=== PATIENT | male | born 1985 | race Caucasian/White ===

== ENCOUNTER 2017-03-22 14:29 | Emergency (ER) | payer MEDICAID ==
--- NOTE | 2017-03-22 14:43 | ED Physician Documentation ---
PD HPI Fall - Stated complaint Stated Complaint: FALL, FACE LAC, HEAD INJ - History obtained from History obtained from: Patient, Family - History of Present Illness Mechanism of injury: Other (fall off ladder into bushes) Fall distance: 10 to 15ft Where injury occurred: Home Timing - onset: How many hours ago (1) Injury(ies) location: Head, Face. No: Neck, Chest, Abdomen, Back, Right Upper Extremity, Left Uppper Extremity, Right Lower Extremity, Left Lower Extremity, Right Hand, Left Hand, Right Foot, Left Foot Pain level max: 3 Pain level now: 3 Quality of pain: Pain, Aching, Dull Associated symptoms: AMS (doesn't recall the event fully). No: LOC, Neck pain, Weakness, Paresthesias, Dyspnea, Nausea / vomiting, Hematemesis Symptoms improve with: Rest Worsens with: Movement, Palpation Contributing factors: No: Anticoagulated, Intoxicated Recently seen: Not recently seen Review of Systems Ten Systems: 10 systems reviewed and negative Constitutional: denies: Fever, Chills Ears: denies: Ear pain Nose: denies: Rhinorrhea / runny nose, Congestion Throat: denies: Sore throat Cardiac: denies: Chest pain / pressure Respiratory: denies: Cough GI: denies: Abdominal Pain, Nausea, Vomiting, Diarrhea Skin: denies: Rash Musculoskeletal: denies: Neck pain, Back pain Neurologic: denies: Focal weakness, Numbness, Syncope, Seizure PD PAST MEDICAL HISTORY - Past Medical History Past Medical History: No - Past Surgical History Past Surgical History: No - Allergies Allergies/Adverse Reactions: Allergies Allergy/AdvReac Type Severity Reaction Status Date / Time tracywi Allergy Itching Verified 03/22/17 14:39 - Living Situation Living Situation: reports: With family Living Arrangement: reports: At home - Family History Family history: reports: Non contributory - Immunizations Immunizations are current?: No Immunizations: TDAP >10years/unknown PD ED PE NORMAL - Vitals Vital signs reviewed: Yes - General General: Alert and oriented X 3, No acute distress, Well developed/nourished - HEENT HEENT: PERRL, EOMI, Ears normal, Moist mucous membranes, Other (abrasion to the bridge of the nose, laceration under the R nare. L parietal abrasion and scalp hematoma. ) - Neck Neck: Supple, no meningeal sign, No bony TTP - Cardiac Cardiac: RRR, Strong equal pulses - Respiratory Respiratory: No respiratory distress, Clear bilaterally - Abdomen Abdomen: Soft, Non tender, Non distended - Back Back: No spinal TTP - Derm Derm: Warm and dry - Extremities Extremities: No deformity - Neuro Neuro: Alert and oriented X 3, rehab technician 2-12 intact, No motor deficit, No sensory deficit, Normal speech - Psych Psych: Normal mood, Normal affect Results - Vitals Vitals: Vital Signs - 24 hr 03/22/17 03/22/17 03/22/17 14:40 14:45 14:50 Temperature Heart Rate 86 85 80 Respiratory 18 16 17 Rate Blood Pressure 124/78 122/73 123/70 O2 Saturation 100 100 99 03/22/17 03/22/17 03/22/17 15:00 15:15 15:30 Temperature Heart Rate 79 86 85 Respiratory 16 16 18 Rate Blood Pressure 124/82 H 119/80 123/80 O2 Saturation 98 100 99 03/22/17 03/22/17 16:42 17:35 Temperature 37.4 C Heart Rate 84 Respiratory 18 Rate Blood Pressure 113/74 O2 Saturation 98 Oxygen O2 Source Room air - Labs Labs: Laboratory Tests 03/22/17 16:36 POC Whole Bld Glucose 130 H - Rads (name of study) head CT Radiology: Prelim report reviewed, EMP read contemporaneously, See rad report ( No acute or focal intracranial abnormality seen. Large left lateral scalp hematoma. ) facial bones CT Radiology: Prelim report reviewed, EMP read contemporaneously, See rad report ( Acute nasal bone fractures involving the anterior bridge extending into the left nasal alar region. There is mild depression of the anterior fracture fragment. Adjacent soft tissue swelling. There appears to be inferior forehead soft tissue swelling. Upper lip soft tissue swelling with soft tissue gas consistent with laceration. Otherwise, as above. ) Procedures - Laceration (location) R upper lip Length in cm: 2.5 Wound type: Linear, Flap, Into subcut fat, Clean Neurovascular status: Sensory intact, Motor intact, Vascular intact Anesthesia: Lidocaine 1% Wound Preparation: Irrigated copiously NS Skin layer closure: Nylon, Size #-0 - enter number (5), Sutures - enter # (3) Other: Patient tolerated well, No complications, Neurovascular intact, Tetanus booster given (tdap) Complexity: Simple PD MEDICAL DECISION MAKING - ED course Complexity details: reviewed results, re-evaluated patient, considered differential, d/w patient, d/w family ED course: Patient is a 31-year-old gentleman who fell off a ladder onto the ground in a [place] today. Has a large left parietal scalp hematoma, but no underlying fractures or intracranial hemorrhage. Has an acute nasal bone fracture with abrasions, but not an open fracture. Also has a right upper lip laceration that was repaired. Tolerated well. No neck or back tenderness. Tdap given. Warnings of infection and instructions on wound care given at bedside. Also counseled on how to minimize scarring. Patient and family counseled regarding signs and symptoms for which I believe and urgent re-evaluation would be necessary. Patient with good understanding of and agreement to plan and is comfortable going home at this time This document was made in part using voice recognition software. While efforts are made to proofread this document, sound alike and grammatical errors may occur. Abdomen was soft, nontender nondistended on serial exam. Ambulating with a normal steady gait. Departure - Departure Disposition: 01 Home, Self Care Clinical Impression: Nasal bone fracture Qualifiers: Encounter type: initial encounter Fracture type: closed Qualified Code(s): S02.2XXA - Fracture of nasal bones, initial encounter for closed fracture Facial laceration Qualifiers: Encounter type: initial encounter Qualified Code(s): S01.81XA - Laceration without foreign body of other part of head, initial encounter Head injury Qualifiers: Encounter type: initial encounter Qualified Code(s): S09.90XA - Unspecified injury of head, initial encounter Scalp hematoma Qualifiers: Encounter type: initial encounter Qualified Code(s): S00.03XA - Contusion of scalp, initial encounter Condition: Good Instructions: ED Head Injury Closed, ED Hematoma Follow-Up: your,doctor in 1 week for suture removal [Other] Comments: Return if you worsen including redness, swelling or drainage from the wound. The nose should heal without any difficulty. Otherwise your CAT scans are normal. The stitches should be removed in approximately 1 week with your doctor or return here. Discharge Date/Time: 03/22/17 17:36
[2017-03-22] MEDS ORDERED: TETANUS/DIPHTHERIA/PERTUSSIS 0.5 ML SYRINGE IM ONE ×3 (14:44→15:46)
[2017-03-22] MEDS ORDERED: LIDOCAINE 2%-EPI 1:100000 20 ML MDV ONE (16:31)
[2017-03-22] MEDS ORDERED: BACITRACIN OINT TOP ONE (16:43)
--- NOTE | 2017-03-22 16:47 | CT Preliminary Report ---
Exam: CT HEAD W/O IMPRESSION: 1.No acute or focal intracranial abnormality seen. 2. Large left lateral scalp hematoma. [facility] SITE ID: [id number]
--- NOTE | 2017-03-22 16:49 | CT Report ---
EXAM: CT HEAD EXAM DATE: 03/22/2017 04:08 PM. CLINICAL HISTORY: Head injury, left parietal, fall off ladder. COMPARISON: None. TECHNIQUE: Multiaxial CT images were obtained from the foramen magnum to the vertex. IV contrast: Non e. Reformats: Coronal. In accordance with CT protocol optimization, one or more of the following dose reduction techniques w ere utilized for this exam: automated exposure control, adjustment of mA and/or KV based on patient s ize, or use of iterative reconstructive technique. FINDINGS: Parenchyma: No intraparenchymal hemorrhage. No evidence of mass, midline shift, or CT findings of inf arction. Ellis-white differentiation is distinct. Extraaxial Spaces: Normal for age. No subdural or epidural collections identified. Ventricles: Normal in size and position. Sinuses and Orbits: Imaged paranasal sinuses, orbits, and mastoids show no significant abnormality. Bones: No evidence of fracture or calvarial defect. Other: Large left lateral scalp hematoma, measures 7.3 x 1.3 x 7 cm. IMPRESSION: 1.No acute or focal intracranial abnormality seen. 2. Large left lateral scalp hematoma. [facility] Referring Provider Line: [phone] SITE ID: [id number]
--- NOTE | 2017-03-22 17:13 | CT Report ---
EXAM: CT MAXILLOFACIAL WITHOUT CONTRAST EXAM DATE: 03/22/2017 04:08 PM. CLINICAL HISTORY: Fall off ladder, nasal and mouth injuries. COMPARISONS: None. TECHNIQUE: Thin-section axial images were acquired of the face without contrast. Post-processing: Cor onal and sagittal reformats. Other: None. In accordance with CT protocol optimization, one or more of the following dose reduction techniques w ere utilized for this exam: automated exposure control, adjustment of mA and/or KV based on patient s ize, or use of iterative reconstructive technique. FINDINGS: Bones: Acute nasal bone fractures involving the anterior bridge extending into the left ruddy al alar region. There is mild depression of the anterior fracture fragment. Adjacent soft tissue swel ling. There appears to be inferior forehead soft tissue swelling. Upper lip soft tissue swelling with soft tissue gas consistent with laceration. Minimal bilateral maxillary sinus mucosal thickening. Minimal right sphenoid sinus mucosal thickening . Bilateral temporomandibular joints appear in normal alignment. Small collection of gas seen at the left aspect of the hypopharynx, uncertain etiology, could represe nt a diverticula here, measures 1 cm. Bilateral orbits appear within normal limits. IMPRESSION: 1. Acute nasal bone fractures involving the anterior bridge extending into the left nasal alar region . There is mild depression of the anterior fracture fragment. Adjacent soft tissue swelling. 2. There appears to be inferior forehead soft tissue swelling. Upper lip soft tissue swelling with so ft tissue gas consistent with laceration. Otherwise, as above. [facility] Referring Provider Line: [phone] SITE ID: [id number]
[2017-03-22 17:36] VITALS: BP 113/74
== END 2017-03-22 17:36 | disposition home or self-care (01) ==
LOC: ED 14:29
DX: S02.2XXA Fracture of nasal bones, initial encounter for closed fracture (principal); S01.511A Laceration without foreign body of lip, initial encounter; S09.90XA Unspecified injury of head, initial encounter; S00.83XA Contusion of other part of head, initial encounter; W11.XXXA Fall on and from ladder, initial encounter; Y92.007 Garden or yard of unspecified non-institutional (private) residence as the place of occurrence of the external cause; Z23 Encounter for immunization
CPT/HCPCS: 12011; 70450; 70486; 90471; 99283; 99284

== ENCOUNTER 2020-08-04 18:50 | Emergency (ER) | payer MEDICAID ==
--- NOTE | 2020-08-04 19:18 | ED Physician Documentation ---
History of Present Illness - Stated complaint Stated Complaint: BLOATED - Chief complaint Chief Complaint: Abd Pain - History obtained from History obtained from: Patient - Additonal information Additional information: 34-year-old man, previously healthy with no past surgical history in the abdomen presents with bloating and sensation of constipation over the past week and a half. Patient states that a month ago he had a viral gastroenteritis and since that time he has had mild upset stomach that has progressively worsened. Pain is diffuse, mild, cramping, associated with bloating sensation. It has been worsening recently since he has had a diet predominantly of beans, cabbage, and corn beef.Denies fevers, nausea vomiting diarrhea urinary symptoms or rectal bleeding. Passing normal gas. His stools are stringy and soft and he has a sensation of incomplete bowel emptying. Of note, the patient also has a midline upper abdominal mass that pops up whenever he strains himself or leans back on an exercise ball. He does notice it for the first time today. It is not painful and goes away when he relaxes the stomach. Review of Systems Ten Systems: 10 systems reviewed and negative Constitutional: denies: Fever GI: reports: Abdominal Pain, Constipation. denies: Nausea, Vomiting, Diarrhea, Bloody / black stool : denies: Dysuria PD PAST MEDICAL HISTORY - Past Medical History Past Medical History: Yes Cardiovascular: None Respiratory: None Neuro: None Endocrine/Autoimmune: None GI: None : None HEENT: Other Psych: None Musculoskeletal: None Derm: None Other Past Medical History: seasonal allergies - Past Surgical History Past Surgical History: No - Present Medications Home Medications: Ambulatory Orders Medication Instructions Recorded Confirmed Loratadine [Claritin] 10 mg PO DAILY 08/04/20 08/04/20 - Allergies Allergies/Adverse Reactions: Allergies Allergy/AdvReac Type Severity Reaction Status Date / Time kiwi Allergy Itching Verified 08/04/20 18:52 - Social History Does the pt smoke?: No Smoking Status: Never smoker Does the pt drink ETOH?: Yes Does the pt have substance abuse?: No - Immunizations Immunizations are current?: Yes Immunizations: TDAP >10years/unknown PD ED PE NORMAL - Vitals Vital signs reviewed: Yes - General General: Alert and oriented X 3, No acute distress, Well developed/nourished - HEENT HEENT: Atraumatic, PERRL, EOMI - Neck Neck: Supple, no meningeal sign - Cardiac Cardiac: RRR - Respiratory Respiratory: No respiratory distress, Clear bilaterally - Abdomen Abdomen: Soft, Non tender, Non distended, Other (discomfort to palpation diffusely. midline upper abdominal wall defect with anterior abdominal wall hernia palpable with strain. easily reducible. ) - Male Male : Deferred - Rectal Rectal: Pt declined - Derm Derm: Normal color - Extremities Extremities: No deformity - Neuro Neuro: Alert and oriented X 3 - Psych Psych: Normal mood, Normal affect Results - Vitals Vitals: Vital Signs - 24 hr 08/04/20 18:52 Temperature 36.4 C L Heart Rate 81 Respiratory 18 Rate Blood Pressure 131/80 H O2 Saturation 98 Oxygen O2 Source Room air PD MEDICAL DECISION MAKING - ED course Complexity details: d/w patient ED course: 34yM with pmh recent viral gastroenteritis p/w bloating and sensation of constipation. KUB obtained to r/o obstruction or microperforation with normal bowel pattern. Patient declined bloodwork and MAGUI. advised changing diet to milder high fiber foods and educated on OTC treatments for bloating/constipation. He will f/u in surgery clinic for hernia evaluation. strict return precautions given. Departure - Departure Clinical Impression: Hernia of anterior abdominal wall, Bloating symptom, Constipation Condition: Good Instructions: ED Gas Bloating, Hernia Follow-Up: Igor Marrero MD [Provider Admit Priv/Credential] - Comments: You were seen in the emergency department for bloating, constipation, and a anterior abdominal wall hernia. None of these conditions appear to be dangerous at this time. Follow-up in surgery clinic for further evaluation of the hernia. Return to the emergency department if you have any new or worsening symptoms or other concerns. Try taking gas-X or simethicone uklt-wbr-rvdodaf at your local pharmacy for bloating. If you continue to feel constipated, you can take cdsf-lzi-kblduoa senna/docusate to soften your stool and MiraLAX as a laxative.
--- NOTE | 2020-08-04 20:00 | XRAY Report ---
PROCEDURE: Abdomen 2 View X-Ray INDICATIONS: lying down and sitting up TECHNIQUE: 2 views of the abdomen were acquired. COMPARISON: None. FINDINGS: Surgical changes and devices: None. Bowel: No pneumoperitoneum. The bowel gas pattern is normal. Soft tissues: No masses; visualized solid organ contours appear normal in size. No suspicious abdom inal calcifications. Bones: No suspicious bony abnormalities. IMPRESSION: Normal bowel gas pattern. Reviewed by: Kiara Meléndez MD on 08/04/2020 7:59 PM PDT Approved by: Kiara Meléndez MD on 08/04/2020 7:59 PM PDT Station ID: [id number]
[2020-08-04] MEDS ORDERED: ACETAMINOPHEN 325 MG TABLET PO STA (20:09)
[2020-08-04 20:12] VITALS: BP 114/75
== END 2020-08-04 20:29 | disposition home or self-care (01) ==
LOC: ED 18:50
DX: K43.9 Ventral hernia without obstruction or gangrene (principal); K59.00 Constipation, unspecified
CPT/HCPCS: 74019; 99283; 99284; A9270

== ENCOUNTER 2021-01-16 21:44 | Emergency (ER) | payer MEDICAID ==
--- NOTE | 2021-01-16 22:32 | ED Physician Documentation ---
PD HPI MALE - Stated complaint Stated Complaint: MALE - Chief complaint Chief Complaint: Abd Pain - History obtained from History obtained from: Patient - History of Present Illness Timing - onset: How many days ago (3-4) Timing - duration: Days Timing - details: Gradual onset Pain level now: 7 Associated symptoms: Scrotal swelling. No: Dysuria PD HPI MALE CONTRIB FACTORS: Sexually active (single partner ()) Similar symptoms before: Has not had sx before Recently seen: Not recently seen - Additional information Additional information: c/o gradual onset left testicular swelling and pain .denies h/o similar symptoms. denies urinary frequency, discharge, dysuria. denies injury Review of Systems Constitutional: denies: Fever GI: denies: Abdominal Pain, Nausea, Vomiting : reports: Testicular pain. denies: Dysuria, Frequency, Hematuria, Discharge Skin: denies: Rash PD PAST MEDICAL HISTORY - Past Medical History Past Medical History: Yes Cardiovascular: None Respiratory: None Neuro: None Endocrine/Autoimmune: None GI: None : None HEENT: Other Psych: None Musculoskeletal: None Derm: None - Past Surgical History Past Surgical History: No - Present Medications Home Medications: Ambulatory Orders Medication Instructions Recorded Confirmed Loratadine [Claritin] 10 mg PO DAILY 08/04/20 08/04/20 Amoxicillin 500 mg PO 01/16/21 levoFLOXacin [Levofloxacin] 500 mg PO DAILY #9 tablet 01/17/21 - Allergies Allergies/Adverse Reactions: Allergies Allergy/AdvReac Type Severity Reaction Status Date / Time kiwi Allergy Itching Verified 01/16/21 21:53 - Social History Does the pt smoke?: No Smoking Status: Never smoker Does the pt drink ETOH?: Yes Does the pt have substance abuse?: No - Immunizations Immunizations are current?: Yes Immunizations: TDAP >10years/unknown PD ED PE NORMAL - Vitals Vital signs reviewed: Yes - General General: Alert and oriented X 3, No acute distress, Well developed/nourished PD ED PE EXPANDED - Male Male : Normal lie/cremastaric, Tenderness (left hemiscrotal swelling and tenderness without erythema). No: Skin lesions, Discharge Results - Vitals Vitals: Vital Signs - 24 hr 01/16/21 01/16/21 21:46 23:13 Temperature 36.4 C L Heart Rate 90 79 Respiratory 14 14 Rate Blood Pressure 120/69 128/79 O2 Saturation 99 98 Oxygen O2 Source Room air - Labs Labs: Laboratory Tests 01/16/21 22:05 Chlam trachomat DNA PCR NEGATIVE N.gonorrhoeae DNA (PCR) NEGATIVE T. vaginalis (PCR) TNP - Rads (name of study) testicular US Radiology: Prelim report reviewed, See rad report PD MEDICAL DECISION MAKING - ED course Complexity details: reviewed results, re-evaluated patient, considered differential, d/w patient ED course: left hemiscrotal swelling and tenderness, symptoms began 3-4 days ago. US shows increased flow to left testicle, findings c/w epididymoorchitis. Will treat with levaquin 500mg PO x 10 days, advised to return if worse, f/u with PMD in 3-5 days. Departure - Departure Disposition: 01 Home, Self Care Clinical Impression: Epididymo-orchitis Condition: Good Instructions: ED Epididymitis, ED Orchitis Prescriptions: levoFLOXacin [Levofloxacin] 500 mg PO DAILY #9 tablet Comments: Follow up with your primary care provider in 3-5 days. Forms: Activity restrictions Discharge Date/Time: 01/17/21 00:52
[2021-01-16 23:13] VITALS: BP 128/79
[2021-01-17] MEDS ORDERED: levoFLOXacin 250 MG TABLET PO STA (00:26)
[2021-01-17] MEDS ORDERED: IBUPROFEN 600 MG TABLET PO STA (00:26)
[2021-01-17 00:50] LABS: CHLAMYDIA TRACHOMATIS DNA NEGATIVE (NEGATIVE); NEISSERIA GONORRHOEAE DNA NEGATIVE (NEGATIVE)
--- NOTE | 2021-01-17 09:30 | Ultrasound Report ---
PROCEDURE: Testicle w/Doppler INDICATIONS: left testicular pain and swelling TECHNIQUE: Real-time scanning was performed of the scrotum and testicles, with image documentation. Color and p ulse Doppler interrogation was performed of both testicles. COMPARISON: None. FINDINGS: Right: Testicle is normal in size at 4.5 x 2.4 x 3.2 cm, and homogenous in echotexture. Epididymis is normal in overall size and morphology. No hydrocele or varicoceles. Overlying scrotal skin is no rmal in thickness. Left: Testicle is normal in size at 4.8 x 3.0 x 3.3 cm, and mildly heterogeneous in echotexture. Ep ididymis is normal in overall size and heterogeneous. There is increased vascularity of both the lef t testicle and left epididymis. Incidental left epididymal appendix. Hyperemia also seen in the left traumatic or. No hydrocele or varicoceles. Overlying scrotal skin is normal in thickness. Doppler: Color and pulse Doppler demonstrate normal and symmetric arterial flow in both testicles. IMPRESSION: Left epididymoorchitis. Note: No significant discrepancy in the preliminary report. Reviewed by: Pepito Sanabria on 01/17/2021 8:28 AM DEB Approved by: Pepito Sanabria on 01/17/2021 8:28 AM DEB Station ID: [id number]
== END 2021-01-17 00:52 | disposition home or self-care (01) ==
LOC: ED 21:44
DX: N45.3 Epididymo-orchitis (principal)
CPT/HCPCS: 76870; 87491; 87591; 93975; 99283; 99284; A9270; 81001; 81003; 87086; 87661

== ENCOUNTER 2022-07-03 17:04 | Emergency (ER) | payer MEDICAID ==
[2022-07-03 17:10] VITALS: BP 136/80
--- OUTSIDE RECORDS SUMMARY | 2022-07-03 17:31 | EXTERNAL MEDICAL SUMMARY RPT | Continuity of Care Document ---
:1985 Author Organization [facility] Address [address] [place] [address] Phone Care Team Providers Name Role Phone Unavailable Unavailable Unavailable [facility], Christi Unavailable Unavailable Edie Ramsey, Trever Unavailable Unavailable Elena Patient Registrar, Herminia Unavailable Unavai lable Allergies No information. Encounters No information. Functional Status No information. Immunizations No information. Medications date description facility 2022-05-03 00:00 amoxicillin [facility] 2022-05-04 00:00 amoxicillin [facility] 2022-06-07 00:00 amoxicillin [facility] Marty lopez 2022-06-21 00:00 amoxicillin [facility] 2022-06-22 00:00 amoxicillin [facility] 2022-05-03 00:00 chlorhexidine gluconate [facility] 2022-05-04 00:00 chlorhexidine gluconate [facility] 2022-06-07 00:00 chlorhexidine gluconate [facility] 2022-06-21 00:00 chlorhexidine gluconate [facility] 2022-06-22 00:00 chlorhexidine gluconate [facility] Marty lopez 2022-05-03 00:00 prednisone [facility] Marty lopez 2022-05-03 00:00 prednisone [facility] Marty olpez 2022-05-03 00:00 prednisone [facility] lopez 2022-05-03 00:00 hydrocodone-acetaminophen [facility] 2022-05-04 00:00 hydrocodone-acetaminophen [facility] C [facility] 2022-06-07 00:00 hydrocodone-acetaminophen [facility] 2022-06-21 00:00 hydrocodone-acetaminophen [facility] 2022-06-22 00:00 hydrocodone-acetaminophen [facility] 2022-05-03 00:00 amoxicillin [facility] C [facility] 2022-05-04 00:00 amoxicillin [facility] 2022-06-07 00:00 amoxicillin [facility] C [facility] 2022-06-21 00:00 amoxicillin [facility] C [facility] 2022-06-22 00:00 amoxicillin [facility] C [facility] 2022-05-03 00:00 ibuprofen [facility] 2022-05-04 00:00 ibuprofen [facility] 2022-06-07 00:00 ibuprofen [facility] 2022-06-21 00:00 ibuprofen [facility] 2022-06-22 00:00 ibuprofen [facility] 2022-05-03 00:00 loratadine [facility] 2022-05-04 00:00 loratadine [facility] 2022-06-07 00:00 loratadine [facility] C [facility] 2022-06-21 00:00 loratadine [facility] C j[facility] 2022-06-22 00:00 loratadine [facility] C [facility] 2022-05-03 00:00 prednisone [facility] C [facility] 2022-05-03 00:00 prednisone [facility] C j[facility] 2022-05-03 00:00 prednisone [facility] C [facility] 2022-05-03 00:00 ibuprofen [facility] C [facility] 2022-05-04 00:00 ibuprofen [facility] C john 2022-06-07 00:00 ibuprofen [facility] C [facility] 2022-06-21 00:00 ibuprofen [facility] C [facility] 2022-06-22 00:00 ibuprofen [facility] C [facility] 2022-05-03 00:00 loratadine [facility] 2022-05-04 00:00 loratadine [facility] Marty lopez 2022-06-07 00:00 loratadine [facility] C [facility] 2022-06-21 00:00 loratadine [facility] C [facility] 2022-06-22 00:00 loratadine [facility] john 2022-05-03 00:00 prednisone [facility] john 2022-05-03 00:00 prednisone [facility] Marty landjohn 2022-05-03 00:00 prednisone [facility] 2022-05-03 00:00 chlorhexidine gluconate [facility] 2022-05-04 00:00 chlorhexidine gluconate [facility] C [facility] 2022-06-07 00:00 chlorhexidine gluconate [facility] Marty lopez 2022-06-21 00:00 chlorhexidine gluconate [facility] Marty lopez 2022-06-22 00:00 chlorhexidine gluconate [facility] Marty lopez 2022-05-03 00:00 benzonatate [facility] 2022-05-03 00:00 benzonatate [facility] C [facility] 2022-05-03 00:00 benzonatate [facility] C j[facility] 2022-05-03 00:00 amoxicillin [facility] C j[facility] 2022-05-04 00:00 amoxicillin [facility] C [facility] 2022-06-07 00:00 amoxicillin [facility] C j[facility] 2022-06-21 00:00 amoxicillin [facility] C j[facility] 2022-06-22 00:00 amoxicillin [facility] C [facility] 2022-05-03 00:00 prednisone [facility] C [facility] 2022-05-03 00:00 prednisone [facility] C j[facility] 2022-05-03 00:00 prednisone [facility] C [facility] 2022-05-03 00:00 loratadine [facility] 2022-05-04 00:00 loratadine [facility] C [facility] 2022-06-07 00:00 loratadine [facility] C [facility] 2022-06-21 00:00 loratadine [facility] C [facility] 2022-06-22 00:00 loratadine [facility] C [facility] 2022-05-03 00:00 benzonatate [facility] C [facility] 2022-05-03 00:00 benzonatate [facility] C [facility] 2022-05-03 00:00 benzonatate [facility] C [facility] 2022-05-03 00:00 albuterol sulfate [facility] 2022-05-03 00:00 albuterol sulfate [facility] C [facility] 2022-05-03 00:00 albuterol sulfate [facility] C [facility] 2022-05-03 00:00 albuterol sulfate [facility] C [facility] 2022-05-03 00:00 albuterol sulfate [facility] 2022-05-03 00:00 albuterol sulfate [facility] C [facility] 2022-05-03 00:00 loratadine [facility] 2022-05-04 00:00 loratadine [facility] 2022-06-07 00:00 loratadine [facility] 2022-06-21 00:00 loratadine [facility] C [facility] 2022-06-22 00:00 loratadine [facility] C [facility] 2022-05-03 00:00 amoxicillin [facility] 2022-05-04 00:00 amoxicillin [facility] C [facility] 2022-06-07 00:00 amoxicillin [facility] C [facility] 2022-06-21 00:00 amoxicillin [facility] C [facility] 2022-06-22 00:00 amoxicillin [facility] C [facility] 2022-05-03 00:00 benzonatate [facility] C [facility] 2022-05-03 00:00 benzonatate [facility] C [facility] 2022-05-03 00:00 benzonatate [facility] C [facility] 2022-05-03 00:00 benzonatate [facility] C j[facility] 2022-05-03 00:00 benzonatate [facility] C [facility] 2022-05-03 00:00 benzonatate [facility] C [facility] 2022-05-03 00:00 ibuprofen [facility] C [facility] 2022-05-04 00:00 ibuprofen [facility] C [facility] 2022-06-07 00:00 ibuprofen [facility] C [facility] 2022-06-21 00:00 ibuprofen [facility] C [facility] 2022-06-22 00:00 ibuprofen [facility] C [facility] 2022-05-03 00:00 hydrocodone-acetaminophen [facility] C [facility] 2022-05-04 00:00 hydrocodone-acetaminophen [facility] C j[facility] 2022-06-07 00:00 hydrocodone-acetaminophen [facility] C [facility] 2022-06-21 00:00 hydrocodone-acetaminophen [facility] C [facility] 2022-06-22 00:00 hydrocodone-acetaminophen [facility] C j[facility] 2022-05-03 00:00 ibuprofen [facility] C [facility] 2022-05-04 00:00 ibuprofen [facility] C [facility] 2022-06-07 00:00 ibuprofen [facility] C [facility] 2022-06-21 00:00 ibuprofen [facility] C [facility] 2022-06-22 00:00 ibuprofen [facility] C [facility] 2022-05-03 00:00 albuterol sulfate [facility] C john 2022-05-03 00:00 albuterol sulfate [facility] C [facility] 2022-05-03 00:00 albuterol sulfate [facility] C [facility] 2022-05-03 00:00 albuterol sulfate [facility] C [facility] 2022-05-03 00:00 albuterol sulfate [facility] C [facility] 2022-05-03 00:00 albuterol sulfate [facility] C [facility] 2022-05-03 00:00 hydrocodone-acetaminophen [facility] C j[facility] 2022-05-04 00:00 hydrocodone-acetaminophen [facility] C [facility] 2022-06-07 00:00 hydrocodone-acetaminophen [facility] C [facility] 2022-06-21 00:00 hydrocodone-acetaminophen [facility] C j[facility] 2022-06-22 00:00 hydrocodone-acetaminophen [facility] C [facility] 2022-05-03 00:00 chlorhexidine gluconate [facility] C [facility] 2022-05-04 00:00 chlorhexidine gluconate [facility] C [facility] 2022-06-07 00:00 chlorhexidine gluconate [facility] C [facility] 2022-06-21 00:00 chlorhexidine gluconate [facility] C [facility] 2022-06-22 00:00 chlorhexidine gluconate [facility] C [facility] 2022-05-03 00:00 hydrocodone-acetaminophen [facility] C [facility] 2022-05-04 00:00 hydrocodone-acetaminophen [facility] C [facility] 2022-06-07 00:00 hydrocodone-acetaminophen [facility] C j[facility] 2022-06-21 00:00 hydrocodone-acetaminophen [facility] C [facility] 2022-06-22 00:00 hydrocodone-acetaminophen [facility] C j[facility] 2022-05-03 00:00 chlorhexidine gluconate [facility] C [facility] 2022-05-04 00:00 chlorhexidine gluconate [facility] Marty lopez 2022-06-07 00:00 chlorhexidine gluconate [facility] Marty lopez 2022-06-21 00:00 chlorhexidine gluconate [facility] Marty lopez 2022-06-22 00:00 chlorhexidine gluconate [facility] Marty lopez Problems date description facility 2022-05-03 00:00 Bronchitis [facility] Marty lopez 2022-05-03 00:00 Bronchitis [facility] Marty lopez 2022-05-03 00:00 Bronchitis [facility] Marty lopez 2022-05-03 00:00 Ganglion cyst [facility] Marty lopez 2022-05-03 00:00 Ganglion cyst [facility] Marty lopez 2022-05-03 00:00 Ganglion cyst [facility] Marty lopez 2022-05-03 00:00 Ganglion, unspecified [facility] Marty lopez 2022-05-03 00:00 Ganglion, unspecified [facility] Marty lopez 2022-05-03 00:00 Ganglion, unspecified [facility] Marty lopez 2022-05-03 00:00 Bronchitis, not specified as acute [facility] or chronic [facility] 2022-05-03 00:00 Bronchitis, not specified as acute [facility] or chronic [facility] Marty lopez 2022-05-03 00:00 Bronchitis, not specified as acute [facility] or chronic [facility] Marty lopez 2022-05-03 00:00 Ganglion, unspecified site [facility] Marty john 2022-05-03 00:00 Ganglion, unspecified site [facility] Marty john 2022-05-03 00:00 Ganglion, unspecified site [facility] [place] 2022-06-21 00:00 Viral upper respiratory tract [facility] & infection [facility] [place] 2022-06-21 00:00 Environmental allergy [facility] [place] 2022-06-21 00:00 Acute upper respiratory infections [facility] of unspecified site [facility] [place] 2022-06-21 00:00 Cough [facility] [place] 2022-06-21 00:00 Allergy, unspecified, not [facility] Primary Care & elsewhere classified [facility] [place] 2022-06-21 00:00 Acute upper respiratory infection, [facility] unspecified [facility] [place] 2022-06-21 00:00 Chronic cough [facility] [place] 2022-06-21 00:00 Other allergy, initial encounter [facility] Procedures date description facility 2022-05-03 00:00 Visit Code Hold [facility] [place] 2022-05-03 00:00 Visit Code Hold [facility] [place] 2022-05-03 00:00 Visit Code Hold [facility] [place] 2022-06-21 00:00 Visit Code Hold [facility] [place] Results/Labs No information. Social History date description facility 2022-05-03 00:00 Never smoker [facility] [place] 2022-05-03 00:00 Never smoker [facility] [place] 2022-05-03 00:00 Never smoker [facility] [place] 2022-06-21 00:00 Never smoker [facility] [place] Vital Signs date measurement value units 2022-05-03 00:00 BMI 36.74 kg/m2 2022-05-03 00:00 BP_diastolic 70 mmHg 2022-05-03 00:00 BP_systolic 109 mmHg 2022-05-03 00:00 heart_rate 75 /min 2022-05-03 00:00 height_metric 165.1 cm 2022-05-03 00:00 height_standard 65 in 2022-05-03 00:00 respiration_rate 18 /min 2022-05-03 00:00 temperature_metric 37 C 2022-05-03 00:00 temperature_standard 98.6 F 2022-05-03 00:00 weight_metric 99.79 kg 2022-05-03 00:00 weight_standard 220 lb 2022-06-21 00:00 BMI 36.74 kg/m2 2022-06-21 00:00 BP_diastolic 71 mmHg 2022-06-21 00:00 BP_systolic 117 mmHg 2022-06-21 00:00 heart_rate 79 /min 2022-06-21 00:00 height_metric 165.1 cm 2022-06-21 00:00 height_standard 65 in 2022-06-21 00:00 respiration_rate 15 /min 2022-06-21 00:00 temperature_metric 36.67 C 2022-06-21 00:00 temperature_standard 98 F 2022-06-21 00:00 weight_metric 99.79 kg 2022-06-21 00:00 weight_standard 220 lb
--- NOTE | 2022-07-03 18:09 | XRAY Report ---
PROCEDURE: Finger(s) RT INDICATIONS: index finger injury TECHNIQUE: AP hand, 2 views of the second finger(s) acquired. COMPARISON: None FINDINGS: Bones: No fractures or dislocations. No suspicious bony lesions. Soft tissues: No suspicious soft tissue calcifications. IMPRESSION: No displaced fractures are seen by plain film. Reviewed by: Griffin Briggs MD on 07/03/2022 5:08 PM [facility] Approved by: Griffin Briggs MD on 07/03/2022 5:08 PM [facility] Station ID: [id number]
--- NOTE | 2022-07-03 18:34 | ED Physician Documentation ---
History of Present Illness - Stated complaint Stated Complaint: RT FINGER INJ - Chief complaint Chief Complaint: Laceration - Additonal information Additional information: Patient 36-year-old male presenting to the emergency department with injury to his right index finger. Cut finger through work gloves while at work earlier today. Believes tetanus is up-to-date. Review of Systems Constitutional: denies: Fever Eyes: denies: Loss of vision Ears: denies: Loss of hearing Nose: denies: Rhinorrhea / runny nose Throat: denies: Dental pain / toothache Cardiac: denies: Chest pain / pressure Respiratory: denies: Dyspnea GI: denies: Abdominal Pain : denies: Dysuria PD PAST MEDICAL HISTORY - Past Medical History Past Medical History: No Cardiovascular: None Respiratory: None Neuro: None Endocrine/Autoimmune: None GI: None : None HEENT: Other Psych: None Musculoskeletal: None Derm: None - Past Surgical History Past Surgical History: No - Present Medications Home Medications: Ambulatory Orders Medication Instructions Recorded Confirmed No Known Home Medications 07/03/22 07/03/22 - Allergies Allergies/Adverse Reactions: Allergies Allergy/AdvReac Type Severity Reaction Status Date / Time tracywi Allergy Itching Verified 07/03/22 17:10 - Social History Does the pt smoke?: No Smoking Status: Never smoker Does the pt drink ETOH?: Yes Does the pt have substance abuse?: No - Immunizations Immunizations are current?: Yes Immunizations: TDAP >10years/unknown PD ED PE NORMAL - General General: Alert and oriented X 3 - HEENT HEENT: Atraumatic - Neck Neck: Supple, no meningeal sign - Respiratory Respiratory: No respiratory distress - Derm Derm: Other (Superficial laceration to the tip of the left second finger) Results - Vitals Vitals: Oxygen O2 Source Room air Procedures - Laceration (location) Finger right Length in cm: 0.5 Wound type: Curved Neurovascular status: Sensory intact, Motor intact, Vascular intact Wound preparation: Chlorhexadine Skin layer closure: Dermabond Other: Patient tolerated well PD Medical Decision Making - ED course ED course: Patient presents with a superficial laceration to the distal aspect of his right indexFinger. Neurovascularly intact. X-rays did not demonstrate any tuft fracture. Wound cleaned in the emergency department and sealed with Dermabond. Wound care and follow-up instructions given prior to discharge. Departure - Departure Disposition: Home, Self Care Clinical Impression: Laceration of finger Qualifiers: Encounter type: initial encounter Finger: index finger Damage to nail status: without damage Foreign body presence: without foreign body Laterality: right Qualified Code(s): S61.210A - Laceration without foreign body of right index finger without damage to nail, initial encounter Instructions: ED Laceration Ext Skin Glue Comments: Thank you for allowing us to care for you today would be [facility]. The x-rays taken today do not show any underlying fracture. The Dermabond used here in the emergency department will fall off on its own over the course of the next few days. After which I recommend twice daily application of an [id number] topical antibiotic ointment such as bacitracin or Neosporin. If it anytime you develop any new or worsening symptoms or signs concerning for infection please return. Discharge Date/Time: 07/03/22 18:37
== END 2022-07-03 18:37 | disposition home or self-care (01) ==
LOC: ED 17:04
DX: S61.210A Laceration without foreign body of right index finger without damage to nail, initial encounter (principal); W27.0XXA Contact with workbench tool, initial encounter; Y99.0 Civilian activity done for income or pay
CPT/HCPCS: 12001; 99283